=== PATIENT | male | born 1960 | race Caucasian/White ===

== ENCOUNTER 2024-10-28 21:34 | Inpatient (IN) | payer MEDICAID ==
[2024-10-28] MEDS: Sodium Chloride 0.9% 1,000 ML IV SCH (21:45)
[2024-10-28 22:17] LABS: BASOPHILS ABSOLUTE AUTO 0.07 K/uL (0.00-0.20); BASOPHILS PERCENT AUTO 1.1 % (0.0-2.0); HEMATOCRIT 32.6 % (39.0-49.0); HEMOGLOBIN 11.6 g/dL (13.1-16.8); IMMATURE GRAN ABSOLUTE AUTO 0.01 10^3/uL (0.00-0.04); IMMATURE GRAN PERCENT AUTO 0.2 % (0.0-0.4); LYMPHOCYTES ABSOLUTE AUTO 0.47 K/uL (0.50-3.50); LYMPHOCYTES PERCENT AUTO 7.3 % (10.0-50.0); MEAN CORPUSCULAR HEMOGLOBIN 26.4 pg (28.2-33.3); MEAN CORPUSCULAR HGB CONC 35.6 g/dL (31.7-36.0); MEAN CORPUSCULAR VOLUME 74.1 fL (84.0-98.0); MONOCYTES ABSOLUTE AUTO 0.46 K/uL (0.00-1.00); MONOCYTES PERCENT AUTO 7.2 % (2.0-14.0); NEUTROPHILS ABSOLUTE AUTO 5.41 K/uL (1.40-7.00); NEUTROPHILS PERCENT AUTO 84.2 % (45.0-80.0); PLATELET COUNT,PLT 168 K/uL (150-350); RED CELL DISTRIBUTION WIDTH 12.7 % (11.2-14.1); WHITE BLOOD CELL COUNT,WBC 6.4 K/uL (4.0-10.2)
[2024-10-28] MEDS: VANCOmycin 2 GM/400 ML 2 GM in Premix Bag 1 BAG IV ONE (22:37)
[2024-10-28 22:40] LABS: LACTIC ACID 2.2 mmol/L (0.4-2.0)
[2024-10-28 22:47] LABS: ALBUMIN 2.9 g/dL (3.4-5.0); BILIRUBIN TOTAL 0.8 mg/dL (0.2-1.0); CALCIUM 8.8 mg/dL (8.5-10.1); CARBON DIOXIDE,CO2 21.9 mmol/L (21.0-32.0); CREATININE 2.11 mg/dL (0.51-1.17); EST CRCL DRUG DOSING (CG) 39.33 mL/min; POTASSIUM,K 3.9 mmol/L (3.5-5.1); PROTEIN TOTAL,TP 7.3 g/dL (6.4-8.2)
[2024-10-28 23:03] LABS: BILIRUBIN,URINE SMALL (NEGATIVE); COLOR,URINE YELLOW; GLUCOSE,URINE 500 mg/dL (NEGATIVE); KETONES,URINE 15 mg/dL (NEGATIVE); LEUKOCYTE ESTERASE,URINE NEGATIVE (NEGATIVE); NITRITE,URINE NEGATIVE (NEGATIVE); OCCULT BLOOD,URINE LARGE (NEGATIVE); PH,URINE 5.5 (5.0-9.0); PROTEIN,URINE >=300 mg/dL (NEGATIVE); UROBILINOGEN,URINE 0.2 E.U./dL (0.2-1.0)
[2024-10-28 23:05] LABS: APPEARANCE,URINE CLOUDY; HYALINE CASTS,URINE FEW; WBC,URINE 0-5 /HPF
[2024-10-28 23:21] LABS: INR 1.1 (0.9-1.1); PROTHROMBIN TIME 11.4 SEC (9.0-11.1); PTT,PARTIAL THROMBOPLSTIN TIME 31.4 SEC (23.8-34.4)
[2024-10-28] MEDS ORDERED: 50% Dextrose in Water 50 ML Syringe IVPUSH PRN (23:26)
[2024-10-28] MEDS ORDERED: Glucagon,Human Recombinant 1 MG Vial IM PRN (23:26)
[2024-10-28 23:36] LABS: O2 DELIVERY DEVICE ROOM AIR; PCO2 ARTERIAL 32 mmHG (35-45); PH,ARTERIAL 7.39 (7.35-7.45)
[2024-10-28 23:37] LABS: BASE EXCESS ARTERIAL -5 mmol/L (-2-3); BICARBONATE,ARTERIAL 19.2 mmol/L (22-26); O2 SATURATION ARTERIAL 92 % (95-98); PO2 ARTERIAL 63 mmHG (80-105)
[2024-10-29] MEDS: Acetaminophen 500 MG Tab PO ONE (00:01)
[2024-10-29] MEDS: Potassium Chloride Riders 10 MEQ in Premix Bag 1 BAG IV ONE (00:05)
[2024-10-29] MEDS: Insulin Regular in 0.9 % NACL 100 ML IV SCH (00:19)
[2024-10-29] MEDS ORDERED: Ondansetron 4 MG Tab.DIS PO PRN (01:00)
[2024-10-29] MEDS: Sodium Chloride 0.9% 10 ML Syringe FLUSH PRN (01:00)
[2024-10-29] MEDS ORDERED: Melatonin 3 MG Tab PO PRN (01:01)
[2024-10-29] MEDS ORDERED: cefTRIAXone 1 GM in Sodium Chloride 0.9% 100 ML IV SCH (01:15)
[2024-10-29] MEDS: Sodium Chloride 0.9% 1,000 ML IV SCH (01:37)
[2024-10-29] MEDS: Acetaminophen 325 MG Tab PO PRN (03:18)
[2024-10-29] MEDS: Aspirin 81 MG Tab.EC PO SCH (07:28)
[2024-10-29] MEDS: glipiZIDE 5 MG Tab.ER PO SCH (07:28)
[2024-10-29] MEDS: cefTRIAXone 1 GM in Sodium Chloride 0.9% 100 ML IV SCH (07:29)
[2024-10-29] MEDS: Enoxaparin 40 MG/0.4 ML Syringe SUBCUT SCH (07:31)
[2024-10-29 07:35] LABS: BASOPHILS ABSOLUTE AUTO 0.06 K/uL (0.00-0.20); BASOPHILS PERCENT AUTO 0.9 % (0.0-2.0); EOSINOPHILS ABSOLUTE AUTO 0.01 K/uL (0.00-0.50); EOSINOPHILS PERCENT AUTO 0.1 % (0.0-5.0); HEMATOCRIT 27.7 % (39.0-49.0); HEMOGLOBIN 9.9 g/dL (13.1-16.8); IMMATURE GRAN ABSOLUTE AUTO 0.02 10^3/uL (0.00-0.04); IMMATURE GRAN PERCENT AUTO 0.3 % (0.0-0.4); LYMPHOCYTES PERCENT AUTO 12.8 % (10.0-50.0); MEAN CORPUSCULAR HEMOGLOBIN 26.4 pg (28.2-33.3); MEAN CORPUSCULAR HGB CONC 35.7 g/dL (31.7-36.0); MEAN CORPUSCULAR VOLUME 73.9 fL (84.0-98.0); MONOCYTES ABSOLUTE AUTO 0.73 K/uL (0.00-1.00); MONOCYTES PERCENT AUTO 10.4 % (2.0-14.0); NEUTROPHILS ABSOLUTE AUTO 5.32 K/uL (1.40-7.00); NEUTROPHILS PERCENT AUTO 75.5 % (45.0-80.0); PLATELET COUNT,PLT 146 K/uL (150-350); RED BLOOD CELL COUNT 3.75 M/uL (4.33-5.41); RED CELL DISTRIBUTION WIDTH 12.8 % (11.2-14.1)
[2024-10-29 07:52] LABS: CALCIUM 8.2 mg/dL (8.5-10.1); CREATININE 1.72 mg/dL (0.51-1.17); EST CRCL DRUG DOSING (CG) 48.25 mL/min; MAGNESIUM 1.7 mg/dL (1.8-2.4); POTASSIUM,K 3.6 mmol/L (3.5-5.1)
[2024-10-29 07:57] LABS: ANION GAP 16.6 meq/L (7-15)
[2024-10-29] MEDS ORDERED: 50% Dextrose in Water 50 ML Syringe IVPUSH PRN ×2 (12:00→12:03)
[2024-10-29] MEDS ORDERED: Glucagon,Human Recombinant 1 MG Vial IM PRN ×2 (12:00→12:03)
[2024-10-29] MEDS: metroNIDAZOLE 500 MG Tab PO SCH (12:25)
[2024-10-29] MEDS: Sodium Chloride 3% 500 ML IV SCH (12:25)
[2024-10-29] MEDS: Insulin Lispro 100 Units/ML 3 ML Vial SUBCUT ONE (12:27)
[2024-10-29 12:52] LABS: HEMOGLOBIN A1C > 13.0 % (4.3-5.7)
[2024-10-29] MEDS: Loperamide 2 MG Tab PO PRN (16:34)
[2024-10-29] MEDS: Insulin Lispro 100 Units/ML 3 ML Vial SUBCUT SCH (17:23)
[2024-10-29] MEDS: Gabapentin 300 MG Cap PO ONE (21:00)
[2024-10-29] MEDS: Lactobacillus Rhamnosus GG (Probiotic) Cap PO SCH (21:00)
[2024-10-29] MEDS: traMADol 50 MG Tab PO PRN (21:00)
[2024-10-30] MEDS: Sodium Chloride 0.9% 1,000 ML IV SCH (05:17)
[2024-10-30] MEDS: Iopamidol 612 MG/ML 100 ML Bottle IVPUSH ONE (05:31)
[2024-10-30] MEDS: VANCOmycin 2 GM in Sodium Chloride 0.9% 500 ML IV ONE (05:31)
[2024-10-30] MEDS: Sodium Chloride 0.9% 10 ML Syringe FLUSH PRN (05:33)
[2024-10-30 05:38] LABS: BASOPHILS ABSOLUTE AUTO 0.05 K/uL (0.00-0.20); BASOPHILS PERCENT AUTO 0.7 % (0.0-2.0); EOSINOPHILS ABSOLUTE AUTO 0.02 K/uL (0.00-0.50); EOSINOPHILS PERCENT AUTO 0.3 % (0.0-5.0); HEMATOCRIT 26.3 % (39.0-49.0); HEMOGLOBIN 9.3 g/dL (13.1-16.8); IMMATURE GRAN ABSOLUTE AUTO 0.05 10^3/uL (0.00-0.04); IMMATURE GRAN PERCENT AUTO 0.7 % (0.0-0.4); LYMPHOCYTES ABSOLUTE AUTO 1.04 K/uL (0.50-3.50); LYMPHOCYTES PERCENT AUTO 13.7 % (10.0-50.0); MEAN CORPUSCULAR HEMOGLOBIN 26.3 pg (28.2-33.3); MEAN CORPUSCULAR HGB CONC 35.4 g/dL (31.7-36.0); MEAN CORPUSCULAR VOLUME 74.5 fL (84.0-98.0); MONOCYTES PERCENT AUTO 10.5 % (2.0-14.0); NEUTROPHILS ABSOLUTE AUTO 5.63 K/uL (1.40-7.00); NEUTROPHILS PERCENT AUTO 74.1 % (45.0-80.0); PLATELET COUNT,PLT 144 K/uL (150-350); RED BLOOD CELL COUNT 3.53 M/uL (4.33-5.41); RED CELL DISTRIBUTION WIDTH 13.1 % (11.2-14.1); WHITE BLOOD CELL COUNT,WBC 7.6 K/uL (4.0-10.2)
[2024-10-30 06:02] LABS: ANION GAP 14.7 meq/L (7-15); CALCIUM 8.1 mg/dL (8.5-10.1); CARBON DIOXIDE,CO2 21.1 mmol/L (21.0-32.0); CREATININE 1.95 mg/dL (0.51-1.17); EST CRCL DRUG DOSING (CG) 42.56 mL/min; POTASSIUM,K 3.8 mmol/L (3.5-5.1)
[2024-10-30] MEDS: Gabapentin 300 MG Cap PO ONE (09:01)
[2024-10-31] MEDS ORDERED: DEXTROSE 5% IV SCH (16:00)
[2024-10-31] MEDS ORDERED: WATER IV SCH (16:00)
[2024-10-31] MEDS ORDERED: VANCOMYCIN IV SCH (16:00)
== END 2024-10-30 14:00 | DRG 872 ==
LOC: LL.ED 21:34 → LL.MS 10-29 00:30
PROVIDERS: ADMIT Physician Assistant; ATTEND Physician Assistant
PROC: 4A033R1 Measurement of Arterial Saturation, Peripheral, Percutaneous Approach (ICD-10-PCS; principal; 2024-10-29)
PROC: 3E03329 Introduction of Other Anti-infective into Peripheral Vein, Percutaneous Approach (ICD-10-PCS; principal; 2024-10-29)
DX: A41.9 Sepsis, unspecified organism (principal); N17.9 Acute kidney failure, unspecified; E87.1 Hypo-osmolality and hyponatremia; E66.9 Obesity, unspecified; D64.9 Anemia, unspecified; R65.20 Severe sepsis without septic shock; E86.0 Dehydration; E11.65 Type 2 diabetes mellitus with hyperglycemia; E11.42 Type 2 diabetes mellitus with diabetic polyneuropathy; Z89.421 Acquired absence of other right toe(s); Z79.899 Other long term (current) drug therapy; Z68.30 Body mass index [BMI] 30.0-30.9, adult; Z79.82 Long term (current) use of aspirin
CPT/HCPCS: 36415; 70450; 71046; 71260; 73030-LT; 73630-50; 74176; 74177; 80048; 80053; 80202; 81001; 82550; 82803; 82947; 83036; 83605; 83735; 83880; 84295; 84484; 85025; 85610; 85730; 87040; 87077; 87147; 87186; 93005; 93010; 96361; 96365; 96366; 96367; 97161-GP; 99223; 99239; 99285-25; A9270-GY; J0696; J1650; J1815-GY; J3372; J3480; J7030; J7040; J7131; Q9967; U0002